=== PATIENT | male | born 1930 | race Caucasian/White ===

== ENCOUNTER 2017-03-23 08:03 | Day surgery (SDC) | payer MEDICARE, BC ==
[~2017-03-23 08:03] MED LIST: ACETAMINOPHEN 325 MG TABLET PO PRN; ACETYLCHOLINE CHLORIDE 20 DROP KIT IO PRN; BUPIVACAINE HCL/PF 30 ML VIAL IJ PRN; CYCLOPENTOLATE HCL 20 DROP BTL RIGHTEYE PRN; DEXTROSE 5%-0.5 NORMAL SALINE 1,000 ML IV PRN; EPINEPHrine 1 MG/ML AMPUL IO PRN; HYALURONATE SODIUM 0.4 ML DISP.SYRIN IO PRN; HYALURONATE SODIUM 0.85 ML DISP.SYRIN IO PRN; LIDOCAINE HCL/PF 200 MG/5 ML AMPUL TP PRN; LIDOCAINE HCL/PF 5 ML VIAL IO PRN; NORMAL SALINE 3 ML BOX IV PRN; TETRACAINE HCL 150 DROP BTL OP PRN
[2017-03-23] MEDS: PHENYLEPHRINE HCL 50 DROP BTL RIGHTEYE PRN ×3 (08:30→08:50)
[2017-03-23] MEDS: TROPICAMIDE 150 DROP BTL RIGHTEYE PRN ×3 (08:30→08:50)
[2017-03-23] MEDS ORDERED: DEXTROSE 5%-0.5 NORMAL SALINE 1,000 ML IV ONE (09:05)
[2017-03-23 10:55] VITALS: BP 118/82
== END 2017-03-23 08:04 | disposition home or self-care (01) ==
LOC: AMB 08:03
PROVIDERS: ATTEND Ophthalmology
PROC: 08RJ3JZ Replacement of Right Lens with Synthetic Substitute, Percutaneous Approach (ICD-10-PCS; principal; 2017-03-23 09:20)
DX: H26.8 Other specified cataract (principal); I48.91 Unspecified atrial fibrillation; I50.9 Heart failure, unspecified; E78.5 Hyperlipidemia, unspecified; E03.9 Hypothyroidism, unspecified; M19.90 Unspecified osteoarthritis, unspecified site; E05.00 Thyrotoxicosis with diffuse goiter without thyrotoxic crisis or storm; Z87.891 Personal history of nicotine dependence; Z68.26 Body mass index [BMI] 26.0-26.9, adult

== ENCOUNTER 2017-04-06 10:38 | Day surgery (SDC) | payer MEDICARE, BC ==
[~2017-04-06 10:38] MED LIST changes: +CYCLOPENTOLATE HCL 20 DROP BTL LEFTEYE PRN; -CYCLOPENTOLATE HCL 20 DROP BTL RIGHTEYE PRN
[2017-04-06] MEDS: TROPICAMIDE 150 DROP BTL LEFTEYE PRN ×3 (11:15→11:45)
[2017-04-06] MEDS: PHENYLEPHRINE HCL 50 DROP BTL LEFTEYE PRN ×3 (11:15→11:45)
[2017-04-06] MEDS ORDERED: DEXTROSE 5%-0.5 NORMAL SALINE 1,000 ML IV ONE (11:30)
[2017-04-06 14:21] VITALS: BP 121/78
== END 2017-04-06 10:39 | disposition home or self-care (01) ==
LOC: SUR 10:38
PROVIDERS: ATTEND Ophthalmology
PROC: 08RK3JZ Replacement of Left Lens with Synthetic Substitute, Percutaneous Approach (ICD-10-PCS; principal; 2017-04-06 11:25)
DX: H26.8 Other specified cataract (principal); I50.9 Heart failure, unspecified; I48.91 Unspecified atrial fibrillation; E78.5 Hyperlipidemia, unspecified; E03.9 Hypothyroidism, unspecified; Z87.891 Personal history of nicotine dependence; Z68.26 Body mass index [BMI] 26.0-26.9, adult

== ENCOUNTER 2017-06-18 14:13 | Inpatient (IN) | payer MEDICARE, BC ==
[2017-06-18 15:02] LABS: Albumin * 3.2 gm/dl (3.4-5.0); Anion Gap 9.4 mmol/L (6.8-13.8); BUN/Creatinine Ratio 32.2 (9.0-21.6); Bilirubin, Total 1.2 mg/dL (0.0-1.1); Calcium * 8.7 mg/dL (7.9-10.9); Carbon Dioxide 36.9 mmol/L (24-32.6); Potassium 3.3 mmol/L (3.4-4.6); TSH * 8.439 uIU/mL (0.358-3.74); Total Protein 8.4 gm/dL (6.2-8.2)
[2017-06-18] MEDS ORDERED: FUROSEMIDE 10 MG/ML VIAL IV STA (15:05)
[2017-06-18] MEDS ORDERED: METOLAZONE 5 MG TABLET PO PRN (15:11)
[2017-06-18 15:25] LABS: Hematocrit 33.3 % (42.0-52.0); Hemoglobin 11.3 gm/dL (13.5-18.0); Mean Cell Volume 96.2 fl (78-100); Mean Corpuscular Hemoglobin 32.7 pg (27-31); Mean Corpuscular Hgb Conc 33.9 g/dl (32-36); Mean Platelet Volume 11.2 fl (6.0-9.5); Neutrophil # 4.3 K/mm3 (1.3-6.0); Neutrophil % 67.7 % (42-75.0); Platelet Count 132 K/mm3 (150-450); Red Blood Count 3.46 M/mm3 (4.7-6.0); Red Cell Distribution Width 16.6 % (11.5-14.0); White Blood Count 6.4 K/mm3 (4.0-10.5)
[2017-06-18 15:39] LABS: Troponin I 0.058 ng/ml (0.00-0.10)
[2017-06-18 15:44] LABS: CKMB 2.9 ng/mL (0.0-9.0)
[2017-06-18 16:17] LABS: Prothrombin Time (Patient) 22.2 Seconds (9.0-11.0)
[2017-06-18 16:18] LABS: INR 2.2 INR (0.90-1.10)
[2017-06-18] MEDS ORDERED: WARFARIN SODIUM 5 MG TABLET PO SCH (17:00)
[2017-06-18] MEDS ORDERED: ALBUTEROL SULFATE/IPRATROPIUM 3 ML NEBU IH PRN (17:07)
[2017-06-18] MEDS: GLUCOSAMINE HCL 1000 MG PO SCH (17:31)
[2017-06-18] MEDS: POTASSIUM CHLORIDE 10 MEQ TABLET.SA PO SCH (17:32)
[2017-06-18] MEDS ORDERED: PHYTONADIONE (VIT K1) 10 MG/ML AMPUL SC ONE (18:26)
[2017-06-18] MEDS ORDERED: PHYTONADIONE (VIT K1) 10 MG/ML AMPUL ONE (19:57)
[2017-06-18] MEDS: SIMVASTATIN 40 MG TABLET PO SCH (20:08)
[2017-06-18] MEDS: HYDROcodone/ACETAMINOPHEN 1 EACH TABLET PO PRN (21:05)
[2017-06-19 06:17] LABS: Prothrombin Time (Patient) 18.8 Seconds (9.0-11.0)
[2017-06-19 06:18] LABS: INR 1.87 INR (0.90-1.10)
[2017-06-19] MEDS: LEVOTHYROXINE SODIUM 75 MCG TABLET PO SCH (07:38)
[2017-06-19] MEDS ORDERED: PHYTONADIONE (VIT K1) 10 MG/ML AMPUL SC STA (08:11)
[2017-06-19] MEDS: MULTIVITAMINS 1 CAP CAPSULE PO SCH (08:20)
[2017-06-19] MEDS: POTASSIUM CHLORIDE 10 MEQ TABLET.SA PO SCH ×2 (08:20→16:26)
[2017-06-19] MEDS: FUROSEMIDE 80 MG TABLET PO SCH (08:20)
[2017-06-19] MEDS: ASPIRIN 81 MG TAB.CHEW PO SCH (08:20)
[2017-06-19] MEDS: SPIRONOLACTONE 25 MG TABLET PO SCH (08:20)
[2017-06-19] MEDS: LORATADINE 10 MG TABLET PO SCH (08:21)
--- NOTE | 2017-06-19 08:30 | PN ---
Subjective - Date and Time Seen Date: 06/19/17 Time: 08:21 Subjective Narrative: Still short of breath but breathing better Complaining of pain over both knees and requesting to have steroid injection Objective - Review of Systems Generalized/Overall Review: Reports: Weakness EENTM: Reports: No Symptoms Reported Respiratory: Reports: Cough, Shortness of Breath Abdominal: Reports: No Symptoms Reported Genitourinary Symptoms: Reports: Urgency, Frequency, Incontinent Musculoskeletal Complaints: Reports: Joint Pain - Both knees Neurological: Reports: No Symptoms Reported Skin: Reports: No Symptoms Reported - Vitals Vitals: Last Vital Signs Temp 37 C 06/19/17 06:59 Pulse 102 H 06/19/17 06:59 Resp 18 06/19/17 06:59 BP 111/60 06/19/17 06:59 Pulse Ox 96 06/19/17 06:59 - Abnormal Lab Findings Abnormal Lab Findings: Abnormal Lab Results 06/18/17 06/18/17 06/18/17 Range/Units 14:18 15:05 15:59 RBC 3.46 L (4.7-6.0) M/mm3 Hgb 11.3 L (13.5-18.0) gm/dL Hct 33.3 L (42.0-52.0) % MCH 32.7 H (27-31) pg RDW 16.6 H (11.5-14.0) % Plt Count 132 L (150-450) K/mm3 MPV 11.2 H (6.0-9.5) fl Lymphocytes % 15.8 L (20-51) % Monocytes % 10.0 H (0.0-9) % Eosinophils % 5.2 H (0.0-3.0) % Basophils % 1.1 H (0.0-1.0) % Lymphocytes # 1.0 L (1.5-3.5) k/mm3 PT 22.2 H (9.0-11.0) Seconds INR (Anticoag Therapy) 2.20 H (0.90-1.10) INR Potassium 3.3 L (3.4-4.6) mmol/L Chloride 94 L (97-106) mmol/L Carbon Dioxide 36.9 H (24-32.6) mmol/L BUN 47 H (6-23) mg/dL Creatinine 1.46 H (0.4-1.4) mg/dL Est GFR (Non-Af Amer) 48 L (60-130) mL/min BUN/Creatinine Ratio 32.2 H (9.0-21.6) Random Glucose 115 H (70-110) mg/dL Total Bilirubin 1.2 H (0.0-1.1) mg/dL B-Natriuretic Peptide 1265 H (5-650) pg/mL Total Protein 8.4 H (6.2-8.2) gm/dL Albumin 3.2 L (3.4-5.0) gm/dl TSH 8.439 H (0.358-3.74) uIU/mL 06/19/17 Range/Units 05:35 RBC (4.7-6.0) M/mm3 Hgb (13.5-18.0) gm/dL Hct (42.0-52.0) % MCH (27-31) pg RDW (11.5-14.0) % Plt Count (150-450) K/mm3 MPV (6.0-9.5) fl Lymphocytes % (20-51) % Monocytes % (0.0-9) % Eosinophils % (0.0-3.0) % Basophils % (0.0-1.0) % Lymphocytes # (1.5-3.5) k/mm3 PT 18.8 H (9.0-11.0) Seconds INR (Anticoag Therapy) 1.87 H (0.90-1.10) INR Potassium (3.4-4.6) mmol/L Chloride (97-106) mmol/L Carbon Dioxide (24-32.6) mmol/L BUN (6-23) mg/dL Creatinine (0.4-1.4) mg/dL Est GFR (Non-Af Amer) (60-130) mL/min BUN/Creatinine Ratio (9.0-21.6) Random Glucose (70-110) mg/dL Total Bilirubin (0.0-1.1) mg/dL B-Natriuretic Peptide (5-650) pg/mL Total Protein (6.2-8.2) gm/dL Albumin (3.4-5.0) gm/dl TSH (0.358-3.74) uIU/mL - Exam Constitutional: Present: Alert, Oriented x3, Cooperative Respiratory: Present: decreased breath sounds, crackles Cardiovascular/Chest: Present: JVD, systolic murmur, gallop/S3, irregularly irregular, edema Abdomen: Present: soft, nontender /Rectal: Present: Other - Genitalia and scrotum markedly swollen Extremity: Present: lower extremity edema Skin Exam: Present: normal color Assessment/Plan - Problems/Diagnosis (1) CHF (congestive heart failure), NYHA class III Problem: Acute Qualifiers: Congestive heart failure type: combined Congestive heart failure chronicity : acute on chronic Qualified Code(s): I50.43 - Acute on chronic combined systolic (congestive) and diastolic (congestive) heart failure Narrative: Patient had adverse reaction previously from Coreg and now has refuse to take any beta saúl (2) Pleural effusion due to CHF (congestive heart failure) Problem: Acute (3) Pleural effusion due to CHF (congestive heart failure) Problem: Acute Narrative: We will give more vitamin K to be able to do thoracentesis safely (4) Arthritis Problem: Acute Narrative: both knees,osteoarthritis (5) Atrial fibrillation Problem: Acute Narrative: Chronic atrial fibrillation (6) Prolonged INR Problem: Acute Narrative: due to warfarin I will give more vitamin K to reduce INR prior to thoracentesis
[2017-06-19] MEDS: GLUCOSAMINE HCL 1000 MG PO SCH ×3 (08:36→16:25)
[2017-06-19] MEDS: ENALAPRIL MALEATE 5 MG TABLET PO SCH (08:39)
[2017-06-19] MEDS ORDERED: FUROSEMIDE 10 MG/ML VIAL IV ONE ×2 (09:18→13:20)
[2017-06-19 12:43] LABS: Prothrombin Time (Patient) 18.1 Seconds (9.0-11.0)
[2017-06-19 12:44] LABS: INR 1.8 INR (0.90-1.10)
[2017-06-20] MEDS: HYDROcodone/ACETAMINOPHEN 1 EACH TABLET PO PRN (01:06)
[2017-06-20] MEDS: SIMVASTATIN 40 MG TABLET PO SCH ×2 (01:06→20:48)
[2017-06-20] MEDS ORDERED: NORMAL SALINE 500 ML IV ONE (01:58)
[2017-06-20] MEDS ORDERED: NORMAL SALINE 1,000 ML IV ONE (02:14)
[2017-06-20 05:32] LABS: Albumin * 2.9 gm/dl (3.4-5.0); Anion Gap 10.8 mmol/L (6.8-13.8); Bilirubin, Total 1.5 mg/dL (0.0-1.1); Ca. Corrected For Albumin 8.8 mg/dL (8.4-10.2); Calcium * 8.2 mg/dL (7.9-10.9); Carbon Dioxide 32.3 mmol/L (24-32.6); Potassium 4.1 mmol/L (3.4-4.6); Total Protein 7.5 gm/dL (6.2-8.2)
[2017-06-20 05:42] LABS: BUN/Creatinine Ratio 32.6 (9.0-21.6)
[2017-06-20] MEDS: LEVOTHYROXINE SODIUM 150 MCG TABLET PO SCH (07:16)
[2017-06-20] MEDS: ENOXAPARIN SODIUM 40 MG/0.4 ML SYRG SC SCH (08:42)
[2017-06-20] MEDS: FUROSEMIDE 80 MG TABLET PO SCH (09:48)
[2017-06-20] MEDS: GLUCOSAMINE HCL 1000 MG PO SCH ×3 (09:52→16:32)
[2017-06-20] MEDS: POTASSIUM CHLORIDE 10 MEQ TABLET.SA PO SCH ×2 (09:53→16:32)
[2017-06-20] MEDS: ENALAPRIL MALEATE 5 MG TABLET PO SCH (09:53)
[2017-06-20] MEDS: SPIRONOLACTONE 25 MG TABLET PO SCH (09:53)
[2017-06-20] MEDS: LORATADINE 10 MG TABLET PO SCH (09:53)
[2017-06-20] MEDS: MULTIVITAMINS 1 CAP CAPSULE PO SCH (09:53)
[2017-06-20] MEDS: ASPIRIN 81 MG TAB.CHEW PO SCH (09:57)
--- NOTE | 2017-06-20 23:28 | PN ---
Subjective - Date and Time Seen Date: 06/20/17 Time: 14:00 Subjective Narrative: Tye reports no concerns today. He feels ok. Denies shortness of breath. States he has problems remembering things at times. He would like a steroid shot in his knees. Objective - Vitals Vitals: Last Vital Signs Temp 36.7 C 06/20/17 22:55 Pulse 97 06/20/17 22:55 Resp 16 06/20/17 22:55 BP 85/50 06/20/17 22:55 Pulse Ox 95 06/20/17 22:55 - Abnormal Lab Findings Abnormal Lab Findings: Abnormal Lab Results 06/20/17 Range/Units 05:00 Chloride 96 L (97-106) mmol/L BUN 62 H (6-23) mg/dL Creatinine 1.90 H D (0.4-1.4) mg/dL Est GFR (Non-Af Amer) 36 L D (60-130) mL/min BUN/Creatinine Ratio 32.6 H (9.0-21.6) Total Bilirubin 1.5 H (0.0-1.1) mg/dL Albumin 2.9 L (3.4-5.0) gm/dl - Exam Constitutional: Present: Alert, Oriented x3, Cooperative ENT Exam: Present: hearing grossly normal Respiratory: Present: decreased breath sounds Cardiovascular/Chest: Present: no edema, irregularly irregular Abdomen: Present: Normal bowel sounds, soft, nontender, nondistended Skin Exam: Present: normal color, warm/dry, no cyanosis Assessment/Plan Plan Narrative: Tye is an 86 yo male with: 1) Pleural effusions secondary to CHF. Due to hypotension with systolic <90 had to hold lasix today and give small 500ml fluid bolus. Blood pressure responded. Overall patient feels ok. Is not hypoxic and denies shortness of breath. 2) Atrial fibrillation: Holding coumadin and on lovenox for possilble thoracentesis for effusions. - Problems/Diagnosis (1) Pleural effusion due to CHF (congestive heart failure) Problem: Acute (2) Atrial fibrillation Problem: Acute
[2017-06-21 05:41] LABS: Anion Gap 13.3 mmol/L (6.8-13.8); BUN/Creatinine Ratio 33.3 (9.0-21.6); Calcium * 8.4 mg/dL (7.9-10.9); Carbon Dioxide 28.6 mmol/L (24-32.6); Estimated Creat Clear 23.2; Potassium 4.9 mmol/L (3.4-4.6)
[2017-06-21] MEDS: LEVOTHYROXINE SODIUM 75 MCG TABLET PO SCH (06:57)
[2017-06-21] MEDS: ENOXAPARIN SODIUM 40 MG/0.4 ML SYRG SC SCH (07:00)
[2017-06-21] MEDS: GLUCOSAMINE HCL 1000 MG PO SCH ×3 (10:07→16:31)
[2017-06-21] MEDS: LORATADINE 10 MG TABLET PO SCH (10:07)
[2017-06-21] MEDS: SPIRONOLACTONE 25 MG TABLET PO SCH (10:07)
[2017-06-21] MEDS: ASPIRIN 81 MG TAB.CHEW PO SCH (10:07)
[2017-06-21] MEDS: MULTIVITAMINS 1 CAP CAPSULE PO SCH (10:08)
[2017-06-21] MEDS: ENALAPRIL MALEATE 5 MG TABLET PO SCH (10:08)
[2017-06-21] MEDS: FUROSEMIDE 80 MG TABLET PO SCH (10:08)
[2017-06-21] MEDS: POTASSIUM CHLORIDE 10 MEQ TABLET.SA PO SCH ×2 (10:17→16:30)
[2017-06-21] MEDS ORDERED: DOCUSATE SODIUM 100 MG CAPSULE PO PRN (13:44)
[2017-06-21] MEDS: SIMVASTATIN 40 MG TABLET PO SCH (20:31)
--- NOTE | 2017-06-21 23:43 | PN ---
Subjective - Date and Time Seen Date: 06/21/17 Time: 11:30 Subjective Narrative: Tye reports feeling ok. Denies shortness of breath. Has some confusion and hallucinations today about "corn in his room." Patient reports he does not sleep well but does not want any sleeping medications. Says he has dreams about the war and gets sad about these. Denies night terrors. Objective - Vitals Vitals: Last Vital Signs Temp 36.5 C 06/21/17 23:06 Pulse 108 H 06/21/17 23:06 Resp 18 06/21/17 23:06 BP 110/62 06/21/17 23:06 Pulse Ox 96 06/21/17 23:06 - Abnormal Lab Findings Abnormal Lab Findings: Abnormal Lab Results 06/21/17 Range/Units 05:15 Potassium 4.9 H (3.4-4.6) mmol/L Chloride 95 L (97-106) mmol/L BUN 71 H (6-23) mg/dL Creatinine 2.13 H (0.4-1.4) mg/dL Est GFR (Non-Af Amer) 31 L (60-130) mL/min BUN/Creatinine Ratio 33.3 H (9.0-21.6) - Exam Constitutional: Present: Alert, Oriented x3, Cooperative ENT Exam: Present: hearing grossly normal Respiratory: Present: decreased breath sounds Cardiovascular/Chest: Present: no edema, irregularly irregular Abdomen: Present: Normal bowel sounds, soft, nontender, nondistended Skin Exam: Present: normal color, warm/dry, no cyanosis Appearance: Present: appropriate appearance, appropriate insight Assessment/Plan Plan Narrative: Tye is an 86yo male with: 1) Pleural effusions due to CHF - Initially plans for thoracentesis, however INR to great. Coumadin has been held. Patient on lovenox. Treating effusions with medical diuresis. Had to hold lasix yesterday due to hypotension with systolic <90. Blood pressure ok today and lasix given. Will repeat chest xray in the AM to re-evaluate effusions. Overall patient is asymptomatic and not hypoxic. 2) Atrial fibrillation: Stable. On lovenox, coumadin being held for possible thoracentesis. - Problems/Diagnosis (1) Pleural effusion due to CHF (congestive heart failure) Problem: Acute (2) Atrial fibrillation Problem: Acute
[2017-06-22 05:51] LABS: Hematocrit 31.2 % (42.0-52.0); Hemoglobin 10.7 gm/dL (13.5-18.0); Mean Corpuscular Hemoglobin 32.2 pg (27-31); Mean Corpuscular Hgb Conc 34.3 g/dl (32-36); Mean Platelet Volume 10.8 fl (6.0-9.5); Neutrophil # 3.9 K/mm3 (1.3-6.0); Platelet Count 133 K/mm3 (150-450); Red Blood Count 3.32 M/mm3 (4.7-6.0); Red Cell Distribution Width 16.5 % (11.5-14.0); White Blood Count 6.1 K/mm3 (4.0-10.5)
[2017-06-22 05:58] LABS: Prothrombin Time (Patient) 12.9 Seconds (9.0-11.0)
[2017-06-22 06:00] LABS: INR 1.29 INR (0.90-1.10)
[2017-06-22 06:04] LABS: Albumin * 2.8 gm/dl (3.4-5.0); BUN/Creatinine Ratio 35.7 (9.0-21.6); Bilirubin, Total 1.5 mg/dL (0.0-1.1); Ca. Corrected For Albumin 8.9 mg/dL (8.4-10.2); Calcium * 8.3 mg/dL (7.9-10.9); Carbon Dioxide 30.9 mmol/L (24-32.6); Potassium 4.9 mmol/L (3.4-4.6); Total Protein 7.5 gm/dL (6.2-8.2)
[2017-06-22] MEDS: LEVOTHYROXINE SODIUM 150 MCG TABLET PO SCH (06:36)
[2017-06-22] MEDS: FUROSEMIDE 80 MG TABLET PO SCH (08:35)
[2017-06-22] MEDS: ENALAPRIL MALEATE 5 MG TABLET PO SCH (08:35)
[2017-06-22] MEDS: POTASSIUM CHLORIDE 10 MEQ TABLET.SA PO SCH ×2 (08:36→16:59)
[2017-06-22] MEDS: SPIRONOLACTONE 25 MG TABLET PO SCH (08:48)
[2017-06-22] MEDS: LORATADINE 10 MG TABLET PO SCH (08:48)
[2017-06-22] MEDS: MULTIVITAMINS 1 CAP CAPSULE PO SCH (08:48)
[2017-06-22] MEDS: ASPIRIN 81 MG TAB.CHEW PO SCH (08:48)
[2017-06-22] MEDS: GLUCOSAMINE HCL 1000 MG PO SCH ×3 (08:49→17:01)
--- NOTE | 2017-06-22 08:53 | ECHO ---
This report is available in the EMR
--- NOTE | 2017-06-22 09:38 | PN ---
Subjective - Date and Time Seen Date: 06/22/17 - n Time: 09:33 Subjective Narrative: Still short of breath occasional cough; complaining of bilateral knee pain Objective - Review of Systems Generalized/Overall Review: Reports: Weakness EENTM: Reports: No Symptoms Reported Respiratory: Reports: Shortness of Breath Cardiac: Reports: No Symptoms Reported Abdominal: Reports: No Symptoms Reported Genitourinary Symptoms: Reports: Incontinent Musculoskeletal Complaints: Reports: Joint Pain Neurological: Reports: No Symptoms Reported Skin: Reports: No Symptoms Reported - Vitals Vitals: Last Vital Signs Temp 36.8 C 06/22/17 06:57 Pulse 79 06/22/17 06:57 Resp 20 06/22/17 06:57 BP 86/55 06/22/17 08:35 Pulse Ox 90 06/22/17 06:57 - Abnormal Lab Findings Abnormal Lab Findings: Abnormal Lab Results 06/22/17 06/22/17 06/22/17 Range/Units 05:48 05:48 05:48 RBC 3.32 L (4.7-6.0) M/mm3 Hgb 10.7 L (13.5-18.0) gm/dL Hct 31.2 L (42.0-52.0) % MCH 32.2 H (27-31) pg RDW 16.5 H (11.5-14.0) % Plt Count 133 L (150-450) K/mm3 MPV 10.8 H (6.0-9.5) fl Lymphocytes % 17.3 L (20-51) % Monocytes % 12.2 H (0.0-9) % Eosinophils % 4.3 H (0.0-3.0) % Lymphocytes # 1.1 L (1.5-3.5) k/mm3 PT 12.9 H (9.0-11.0) Seconds INR (Anticoag Therapy) 1.29 H (0.90-1.10) INR Sodium 131 L (132-142) mmol/L Potassium 4.9 H (3.4-4.6) mmol/L Chloride 93 L (97-106) mmol/L BUN 71 H (6-23) mg/dL Creatinine 1.99 H (0.4-1.4) mg/dL Est GFR (Non-Af Amer) 34 L (60-130) mL/min BUN/Creatinine Ratio 35.7 H (9.0-21.6) Total Bilirubin 1.5 H (0.0-1.1) mg/dL Albumin 2.8 L (3.4-5.0) gm/dl - Exam Constitutional: Present: Alert, Oriented x3, Cooperative Neck: Present: full range of motion Respiratory: Present: decreased breath sounds, No wheezing Cardiovascular/Chest: Present: JVD, irregularly irregular, edema Abdomen: Present: soft, nontender Assessment/Plan - Problems/Diagnosis (1) CHF (congestive heart failure), NYHA class III Problem: Acute Qualifiers: Congestive heart failure type: combined Congestive heart failure chronicity : acute on chronic Qualified Code(s): I50.43 - Acute on chronic combined systolic (congestive) and diastolic (congestive) heart failure (2) Pleural effusion due to CHF (congestive heart failure) Problem: Acute (3) Pleural effusion due to CHF (congestive heart failure) Problem: Acute Narrative: will reschedule for ultrasound guided thoracentesis (4) Arthritis Problem: Acute (5) Atrial fibrillation Problem: Acute (6) Prolonged INR Problem: Resolved
[2017-06-22 13:52] LABS: Total Protein Body Fluid 3.2 gm/dL
[2017-06-22 14:09] LABS: Body Fluid Appearance SLIGHTLY CLOUDY (CLEAR)
[2017-06-22 14:13] LABS: Body Fluid Color AMBER (COLORLESS)
[2017-06-22] MEDS: NORMAL SALINE 1,000 ML IV PRN (16:59)
[2017-06-22] MEDS ORDERED: WARFARIN SODIUM 5 MG TABLET PO SCH (17:00)
[2017-06-22] MEDS: SIMVASTATIN 40 MG TABLET PO SCH (21:24)
[2017-06-23] MEDS: LEVOTHYROXINE SODIUM 75 MCG TABLET PO SCH (06:31)
[2017-06-23] MEDS: SPIRONOLACTONE 25 MG TABLET PO SCH (08:14)
[2017-06-23] MEDS: ASPIRIN 81 MG TAB.CHEW PO SCH (08:14)
[2017-06-23] MEDS: MULTIVITAMINS 1 CAP CAPSULE PO SCH (08:15)
[2017-06-23] MEDS: LORATADINE 10 MG TABLET PO SCH (08:15)
[2017-06-23] MEDS: POTASSIUM CHLORIDE 10 MEQ TABLET.SA PO SCH ×2 (08:15→17:32)
[2017-06-23] MEDS: ENALAPRIL MALEATE 5 MG TABLET PO SCH (08:15)
[2017-06-23] MEDS: GLUCOSAMINE HCL 1000 MG PO SCH ×3 (08:16→17:33)
--- NOTE | 2017-06-23 08:46 | PN ---
Subjective - Date and Time Seen Date: 06/23/17 Time: 08:43 Subjective Narrative: . Breathing better. No weakness no dizziness is to Objective - Review of Systems Generalized/Overall Review: Reports: No Symptoms Reported EENTM: Reports: No Symptoms Reported Respiratory: Reports: Cough Cardiac: Reports: No Symptoms Reported Abdominal: Reports: No Symptoms Reported Genitourinary Symptoms: Reports: Incontinent Musculoskeletal Complaints: Reports: Joint Pain Neurological: Reports: No Symptoms Reported Skin: Reports: No Symptoms Reported - Vitals Vitals: Last Vital Signs Temp 37.2 C 06/23/17 06:56 Pulse 99 06/23/17 06:56 Resp 14 06/23/17 06:56 BP 93/54 06/23/17 08:15 Pulse Ox 93 06/23/17 06:56 - Abnormal Lab Findings Abnormal Lab Findings: Abnormal Lab Results 06/22/17 06/22/17 Range/Units 05:48 12:20 Sodium 131 L (132-142) mmol/L Potassium 4.9 H (3.4-4.6) mmol/L Chloride 93 L (97-106) mmol/L BUN 71 H (6-23) mg/dL Creatinine 1.99 H (0.4-1.4) mg/dL Est GFR (Non-Af Amer) 34 L (60-130) mL/min BUN/Creatinine Ratio 35.7 H (9.0-21.6) Total Bilirubin 1.5 H (0.0-1.1) mg/dL Lactate Dehydrogenase 337 H (85-227) U/L Albumin 2.8 L (3.4-5.0) gm/dl Fluid RBC Greater than 1000 H (0-1000) /uL - Exam Constitutional: Present: Alert, Oriented x3, Cooperative ENT Exam: Present: normal ENT inspection Respiratory: Present: decreased breath sounds, crackles Cardiovascular/Chest: Present: JVD, systolic murmur, irregularly irregular Abdomen: Present: Normal bowel sounds, soft, nontender Extremity: Present: lower extremity edema Skin Exam: Present: normal color Assessment/Plan - Problems/Diagnosis (1) CHF (congestive heart failure), NYHA class III Problem: Acute Qualifiers: Congestive heart failure type: combined Congestive heart failure chronicity : acute on chronic Qualified Code(s): I50.43 - Acute on chronic combined systolic (congestive) and diastolic (congestive) heart failure (2) Pleural effusion due to CHF (congestive heart failure) Problem: Acute Narrative: We'll stop diuretic and start slow hydration Will obtain cardiology consult (3) Pleural effusion due to CHF (congestive heart failure) Problem: Acute (4) Arthritis Problem: Acute (5) Atrial fibrillation Problem: Acute (6) Prolonged INR Problem: Resolved
[2017-06-23] MEDS: NORMAL SALINE 1,000 ML IV PRN (13:05)
[2017-06-23] MEDS: NYSTATIN 30 APPL TUBE TP SCH (21:21)
[2017-06-23] MEDS: SIMVASTATIN 40 MG TABLET PO SCH (21:22)
[2017-06-24] MEDS: LEVOTHYROXINE SODIUM 150 MCG TABLET PO SCH (07:11)
[2017-06-24] MEDS: NYSTATIN 30 APPL TUBE TP SCH ×2 (08:49→20:17)
[2017-06-24] MEDS: SPIRONOLACTONE 25 MG TABLET PO SCH (08:49)
[2017-06-24] MEDS: ASPIRIN 81 MG TAB.CHEW PO SCH (08:49)
[2017-06-24] MEDS: GLUCOSAMINE HCL 1000 MG PO SCH ×3 (08:49→16:43)
[2017-06-24] MEDS: ENALAPRIL MALEATE 5 MG TABLET PO SCH (08:49)
[2017-06-24] MEDS: LORATADINE 10 MG TABLET PO SCH (08:50)
[2017-06-24] MEDS: MULTIVITAMINS 1 CAP CAPSULE PO SCH (08:50)
--- NOTE | 2017-06-24 16:24 | PN ---
Subjective - Date and Time Seen Date: 06/24/17 Time: 16:17 Subjective Narrative: Feeling better and not short of breath Objective - Review of Systems Generalized/Overall Review: Reports: No Symptoms Reported Respiratory: Reports: No Symptoms Reported Cardiac: Reports: No Symptoms Reported Abdominal: Reports: No Symptoms Reported Genitourinary Symptoms: Reports: Incontinent Neurological: Reports: No Symptoms Reported - Vitals Vitals: Last Vital Signs Temp 36.7 C 06/24/17 15:34 Pulse 74 06/24/17 15:34 Resp 16 06/24/17 15:34 BP 84/57 06/24/17 15:34 Pulse Ox 96 06/24/17 15:34 - Exam Constitutional: Present: Alert, Oriented x3 Respiratory: Present: rales Cardiovascular/Chest: Present: JVD Abdomen: Present: Normal bowel sounds, soft, nontender Extremity: Present: lower extremity edema Skin Exam: Present: normal color Assessment/Plan - Problems/Diagnosis (1) CHF (congestive heart failure), NYHA class III Problem: Acute Qualifiers: Congestive heart failure type: combined Congestive heart failure chronicity : acute on chronic Qualified Code(s): I50.43 - Acute on chronic combined systolic (congestive) and diastolic (congestive) heart failure (2) Pleural effusion due to CHF (congestive heart failure) Problem: Acute (3) Pleural effusion due to CHF (congestive heart failure) Problem: Acute (4) Arthritis Problem: Acute (5) Atrial fibrillation Problem: Acute (6) Prolonged INR Problem: Resolved
[2017-06-24] MEDS ORDERED: WARFARIN SODIUM 5 MG TABLET PO SCH (17:00)
[2017-06-24] MEDS: SIMVASTATIN 40 MG TABLET PO SCH (20:17)
[2017-06-25 05:53] LABS: Prothrombin Time (Patient) 11.6 Seconds (9.0-11.0)
[2017-06-25 05:55] LABS: INR 1.16 INR (0.90-1.10)
[2017-06-25] MEDS: LEVOTHYROXINE SODIUM 75 MCG TABLET PO SCH (06:52)
[2017-06-25 08:24] LABS: Albumin * 2.9 gm/dl (3.4-5.0); Anion Gap 11.5 mmol/L (6.8-13.8); BUN/Creatinine Ratio 34.8 (9.0-21.6); Bilirubin, Total 1.6 mg/dL (0.0-1.1); Ca. Corrected For Albumin 8.7 mg/dL (8.4-10.2); Calcium * 8.1 mg/dL (7.9-10.9); Carbon Dioxide 26.7 mmol/L (24-32.6); Potassium 5.2 mmol/L (3.4-4.6); Total Protein 7.1 gm/dL (6.2-8.2)
[2017-06-25 08:28] LABS: Hematocrit 31.4 % (42.0-52.0); Hemoglobin 10.8 gm/dL (13.5-18.0); Mean Cell Volume 95.2 fl (78-100); Mean Corpuscular Hemoglobin 32.7 pg (27-31); Mean Corpuscular Hgb Conc 34.4 g/dl (32-36); Mean Platelet Volume 11.5 fl (6.0-9.5); Neutrophil # 3.4 K/mm3 (1.3-6.0); Neutrophil % 62.6 % (42-75.0); Platelet Count 136 K/mm3 (150-450); Red Cell Distribution Width 17.2 % (11.5-14.0); White Blood Count 5.5 K/mm3 (4.0-10.5)
--- NOTE | 2017-06-25 08:51 | DS ---
(1) CHF (congestive heart failure), NYHA class III Problem: Acute Qualifiers: Congestive heart failure type: combined Congestive heart failure chronicity : acute on chronic Qualified Code(s): I50.43 - Acute on chronic combined systolic (congestive) and diastolic (congestive) heart failure (2) Pleural effusion due to CHF (congestive heart failure) Problem: Acute (3) Pleural effusion due to CHF (congestive heart failure) Problem: Acute (4) Arthritis Problem: Acute (5) Atrial fibrillation Problem: Acute (6) Prolonged INR Problem: Resolved Description of Stay: 86-year-old white male was admitted because of shortness of breath and weakness chest x-ray showed large right-sided pleural effusion. Echocardiogram show markedly dilated IVC massive. Biatrial chamber enlargement severe MR and severe TR. Vitamin K was given to reverse INR to less than 1.5 so thoracentesis could be safely done. He was given IV Lasix. Ultrasound-guided [id number] 1.2 L of fluid he became hypotensive. IV Lasix was discontinued and was started on slow IV hydration. Cardiology consultation was obtained from Dr. Noble and his recommendation is slow diuresis and poor part of evaluation at [facility] for possible mitral valve repair. Because of severe knee pain patient is requesting to have steroid injection of his knee but orthopedic consultation was obtained from Wilfrid Miller who refused to give steroid injection to his knee and will be discharged and follow up with me in 1 week Procedures Performed: none Discharge Location: Home Disposition: Home self-care Condition: Poor Discharge Activity: Activity as tolerated Discharge Diet: Low salt Referrals: Gaurang Almaraz MD [Primary Care Provider] - Additional Patient Instructions (free text): -Please make TCM appointment unless senior care discharge. Thank you! Gabi @ [phone].Follow up with Dr. Almaraz on 07-02-17 @ 1:45pm. [facility] to follow at discharge, please call and fax discharge orders to them. Follow office appointment in Orthopedics with Wilfrid ALBA for outpatient bilateral knee pain on ThursdayJune 26 at 1:00pm. [facility] at discharge Prescriptions (Any new or edited meds): Furosemide [Lasix] 80 mg PO DAILY 30 Days #30 tablet Complete Home Medications List: Complete Home Medication List: Aspirin [Aspirin Chewable] 81 mg PO DAILY 03/17/17 Cetirizine HCl [Zyrtec] 10 mg PO DAILY 03/17/17 Glucosamine HCl 1,000 mg PO TID 03/17/17 HYDROcodone/ACETAMINOPHEN [[place] 5-325] 1 tab PO Q4H PRN 03/17/17 Levothyroxine Sodium [Synthroid] 150 mcg PO Q2D 03/17/17 Levothyroxine Sodium [Synthroid] 225 mcg PO Q2D 03/17/17 Metolazone [Zaroxolyn] 5 mg PO DAILY PRN 03/17/17 Multivitamins [Multivitamin Gaurav] 1 cap PO DAILY 03/17/17 Nitroglycerin [Nitrostat] 0.4 mg SL [id number] PRN 03/17/17 Potassium Chloride [Klor-Con 10] 10 meq PO QAM 03/17/17 Simvastatin [Zocor] 80 mg PO HS 03/17/17 Spironolactone [Aldactone] 25 mg PO DAILY 03/17/17 Warfarin Sodium [Coumadin] 5 mg PO [id number] 03/17/17 Warfarin Sodium [Coumadin] 7.5 mg PO MO 03/17/17 Docusate Sodium [Colace] 100 mg PO 1200 06/18/17 Docusate Sodium [Colace] 200 mg PO 0700 06/18/17 Docusate Sodium [Colace] 200 mg PO HS 06/18/17 Polyethylene Glycol 3350 [Miralax] 17 gm PO BID 06/18/17 Potassium Chloride [Klor-Con 10] 30 meq PO 1700 06/18/17 Furosemide [Lasix] 80 mg PO DAILY 30 Days #30 tablet 06/25/17
[2017-06-25] MEDS: GLUCOSAMINE HCL 1000 MG PO SCH ×2 (08:59→14:06)
[2017-06-25] MEDS: ENALAPRIL MALEATE 5 MG TABLET PO SCH (09:00)
[2017-06-25] MEDS: ASPIRIN 81 MG TAB.CHEW PO SCH (09:07)
[2017-06-25] MEDS: LORATADINE 10 MG TABLET PO SCH (09:07)
[2017-06-25] MEDS: SPIRONOLACTONE 25 MG TABLET PO SCH (09:07)
[2017-06-25] MEDS: MULTIVITAMINS 1 CAP CAPSULE PO SCH (09:07)
[2017-06-25] MEDS: NYSTATIN 30 APPL TUBE TP SCH (09:08)
[2017-06-25 09:12] VITALS: BP 93/54
[2017-06-29] MEDS ORDERED: WARFARIN SODIUM 7.5 MG TABLET PO SCH (17:00)
== END 2017-06-25 13:50 | disposition home or self-care (01) | DRG 293 ==
LOC: LAB 14:13 → MS 14:59
PROVIDERS: ADMIT Internal Medicine; ATTEND Internal Medicine
PROC: 0W993ZZ Drainage of Right Pleural Cavity, Percutaneous Approach (ICD-10-PCS; principal; 2017-06-22)
DX: M25.562 Pain in left knee; M25.561 Pain in right knee; E78.5 Hyperlipidemia, unspecified; I10 Essential (primary) hypertension; I48.2 Chronic atrial fibrillation; I50.43 Acute on chronic combined systolic (congestive) and diastolic (congestive) heart failure; E03.9 Hypothyroidism, unspecified